=== PATIENT | female | born 1960 | race Caucasian/White ===

== ENCOUNTER 2020-07-29 21:09 | Emergency (ER) | payer BC, MEDICAID ==
[2020-07-29] MEDS ORDERED: Orphenadrine 60 MG/2 ML Inj IM STA (21:34)
--- NOTE | 2020-07-29 21:40 | EDM.PDOC ---
ED HPI GENERAL MEDICAL PROBLEM - General Stated Complaint: FALL AND INJURD BACK Time Seen by Provider: 07/29/20 21:35 Source of Information: Reports: Patient History Limitations: Reports: No Limitations - History of Present Illness INITIAL COMMENTS - FREE TEXT/NARRATIVE: Patient comes emergency department today with complaints of right lower lateral back pain. This patient on Tuesday was trying to move a pool in her yard when she was bending over and slipped and injured her right lower back. She did somewhat fall against which she was trying to move that was a rather large pool. She has no loss of bowel or bladder. No change in the functionality of her lower extremities. No paresthesias of her lower extremities. The pain is more on the lateral aspect of her right lower back midclavicular line posteriorly. She did take some ibuprofen just prior to arrival. Her pain has been doing well but she suddenly moved in bed and had a severe shooting squeezing stabbing pain in the right lower back. She has no hematuria dysuria or urinary frequency. No fever no chills. NO COVID exposure no COVID symptoms. - Related Data Home Meds: Home Meds Cyclobenzaprine [Flexeril] 10 mg PO TID PRN #9 tab 07/29/20 [Rx] ED ROS GENERAL - Review of Systems Review Of Systems: Comprehensive ROS is negative, except as noted in HPI. ED EXAM,LOWER BACK PAIN/INJURY - Physical Exam Exam: See Below Exam Limited By: No Limitations General Appearance: Alert, WD/WN, No Apparent Distress Head: Atraumatic, Normocephalic Neck: Normal Inspection, Supple Respiratory/Chest: No Respiratory Distress, Lungs Clear, Normal Breath Sounds, No Accessory Muscle Use, Chest Non-Tender Cardiovascular: Normal Peripheral Pulses, Regular Rate, Rhythm GI/Abdominal: Normal Bowel Sounds, Soft, Non-Tender, No Mass (Female) Exam: Deferred Rectal (Female) Exam: Deferred Back Exam: Muscle Spasm (In the area identified on the body diagram below), Paraspinal Tenderness (There are posteriorly about L1 or 2 in the soft tissue area there is quite a bit of tenderness and muscle spasm. There is no bruising swelling ecchymosis bony deformity.). No: CVA Tenderness (L), CVA Tenderness (R), Vertebral Tenderness (Palpation down the posterior midline spine does not elicit any bony deformity step-offs bruising contusions or tenderness.) Extremities: Normal Inspection, Normal Range of Motion, No Pedal Edema, Normal Capillary Refill Neurological: Alert, Normal Mood/Affect, Normal Dorsiflexion DTR - Lower Extremities: 2+: Knee (R), Knee (L), Ankle (R), Ankle (L) Psychiatric: Normal Affect, Normal Mood Skin Exam: Warm, Dry, Intact, Normal Color, No Rash Front/Back Body Diagram: 1 - Tenderness no bruising swelling. NOted muscle spasm. Course - Orders/Labs/Meds Orders: Active Orders 24 hr Category Date Time Status UA RFX MASTER AND CULT IF INDIC [URIN] Stat Lab 07/29/20 21:41 Ordered Meds: Medications Discontinued Medications Generic Name Dose Route Start Last Admin Trade Name Tyroneq PRN Reason Stop Dose Admin Hydromorphone HCl 0.5 mg 07/29/20 22:46 Dilaudid IM 07/29/20 22:47 ONETIME ONE Orphenadrine Citrate 60 mg 07/29/20 21:34 Norflex IM 07/29/20 21:35 NOW STA Promethazine HCl 12.5 mg 07/29/20 22:46 Phenergan IM 07/29/20 22:47 ONETIME ONE - Re-Assessments/Exams Free Text/Narrative Re-Assessment/Exam: 07/29/20 21:40 Norflex 60mg IM I would like to do a UA as well although the patient refuses. 07/29/20 23:35 The patient had some improvement of her pain but she is still having some muscle spasms especially when she moves. Dilaudid 0.5 mg IM as well as 12.5 mg of Phenergan IM. He still denies doing a urine although this is really the sequelae of musculoskeletal muscle spasms. We will send her home with some Flexeril. I would like her to see physical therapy although she refuses because she does not have any insurance. Heat or ice to the area symptomatic management. I will give her a note for work for the next couple of days as well. She is comfortable with this plan and her questions were answered. Departure - Departure Time of Disposition: 22:47 Disposition: Home, Self-Care 01 Clinical Impression: Muscle spasm of back - Discharge Information Prescriptions: Cyclobenzaprine [Flexeril] 10 mg PO TID PRN #9 tab PRN Reason: Muscle Spasm Instructions: Muscle Cramps and Spasms, [id number], Back Injury Prevention, [id number] Referrals: PCP,None [Primary Care Provider] - Forms: ED Return to Work/School Form Additional Instructions: Tylenol and or Ibuprofen as needed for pain. Flexeril 1 tablet three times a day as needed for pain or spasms. RX to [facility]. Caution Sedation. Heat or Ice to area. I would encourage heat at this time to help calm the muscle rather than ice. See physical therapy if not improving. Return to the ED if new or worsening symptoms. Follow up with PCP in the next 4-6 days if not improving sooner if worse. - My Orders Last 24 Hours: My Active Orders 07/29/20 21:41 UA RFX MASTER AND CULT IF INDIC [URIN] Stat - Assessment/Plan Last 24 Hours: My Active Orders 07/29/20 21:41 UA RFX MASTER AND CULT IF INDIC [URIN] Stat
[2020-07-29] MEDS ORDERED: HYDROmorphone 0.5 MG/0.5 ML Syringe IM ONE (22:46)
[2020-07-29] MEDS ORDERED: Promethazine 25 MG/ML SDV IM ONE (22:46)
== END 2020-07-29 23:15 | disposition home or self-care (01) ==
LOC: VM.ED 21:09
DX: M62.830 Muscle spasm of back (principal)
CPT/HCPCS: 96372; 99283; J1170; J2360; J2550